=== PATIENT | female | born 1995 | race Caucasian/White ===

== ENCOUNTER 2016-04-30 22:06 | Emergency (ER) | payer BC ==
[~2016-04-30] VITALS: Ht 160 cm; Wt 73.3 kg
[~2016-04-30 22:06] MED LIST: ABILIFY5 MG PO; ALBUTEROL SULF8.5 GM IH; BUPROPION 200 MG; CALCIUM + D 601 EACH PO; CALCIUM 500 +1 EAC1 PO; ELIMITE 5% CREA60 GM TP; FAMOTIDINE20 MG PO; FLEXERIL10 MG PO; FLORINEF ACETA0.1 MG PO; FLUOXETINE HCL20 M1 PO; FLUOXETINE HCL20 MG PO; FLUOXETINE HCL40 MG PO; MEDROL DOSEPAK4 MG PO; NAPROSYN500 MG PO; PROZAC20 MG PO; TESSALON PERLE100 MG PO; VYVANSE20 MG PO; WELLBUTRIN PO; WELLBUTRIN SR150 MG PO; WELLBUTRIN SR200 MG PO; ZANTAC150 MG PO; ZITHROMAX Z-PA250 MG PO; ZOFRAN4 MG PO; ZOLOFT100 M1 PO; [UNRECOGNIZED DRUG - OTHER] PO; [UNRECOGNIZED DRUG - OTHER] PO
[2016-04-30] MEDS ORDERED: PERCOCET 5/31 TABLET PO (23:11)
[2016-04-30] MEDS ORDERED: PEN-VEE K,VEET500 MG PO (23:11)
[2016-04-30 23:24] VITALS: BP 134/80
== END 2016-04-30 23:25 | disposition home or self-care (01) ==
LOC: EME 22:06 → EXP 22:06
DX: K04.7 Periapical abscess without sinus (principal)
CPT/HCPCS: 99281; 99283

== ENCOUNTER 2016-11-07 10:29 | Emergency (ER) | payer BC ==
[~2016-11-07] VITALS: Ht 160 cm; Wt 62.6 kg
[~2016-11-07 10:29] MED LIST changes: +PEN-VEE K,VEET500 MG PO; +PERCOCET 5/31 TABLET PO
[2016-11-07] MEDS ORDERED: ZANTAC150 MG PO (11:50)
[2016-11-07] MEDS ORDERED: BUSPAR10 MG PO (11:50)
[2016-11-07] MEDS ORDERED: FIORICET 50-301 EACH PO (12:07)
[2016-11-07 12:57] VITALS: BP 129/86
== END 2016-11-07 12:57 | disposition home or self-care (01) ==
LOC: EME 10:29
DX: G43.909 Migraine, unspecified, not intractable, without status migrainosus (principal); M43.6 Torticollis; F17.200 Nicotine dependence, unspecified, uncomplicated
CPT/HCPCS: 99281; 99284; J1885

== ENCOUNTER 2016-11-16 10:44 | Emergency (ER) | payer BC ==
[~2016-11-16] VITALS: Ht 160 cm; Wt 69.1 kg
[~2016-11-16 10:44] MED LIST changes: +BUSPAR10 MG PO; +FIORICET 50-301 EACH PO
[2016-11-16 11:09] LABS: HEMATOCRIT 42.7 % (36.0-46.0); MCH 29.2 PG (29.0-34.0); MCHC 33.5 G/DL (30.0-36.0); MCV 87.1 FL (83-99); MEAN PLAT.VOLUME 10.4 uM^3 (9.5-12.4); PLATELET COUNT 272 K/uL (156-360); RBC DIS.WIDTH-CV 12.5 % (11.8-14.6); RBC DIS.WIDTH-SD 39.9 % (39-53); WHITE BLOOD COUNT 8.6 K/uL (4.1-10.2)
[2016-11-16 11:20] LABS: CHLORIDE 105 mEq/L (99-109); POTASSIUM 3.7 mEq/L (3.7-5.4); SODIUM 143 mEq/L (136-147)
[2016-11-16 11:21] LABS: GLUCOSE 128 mg/dL (70-99)
[2016-11-16 11:23] LABS: ANION GAP 16 MEQ/L (2-14)
[2016-11-16 11:25] LABS: GFR ESTIMATE (CALCULATED) > 59 mL/min/
[2016-11-16 11:26] LABS: UREA NITROGEN (BUN) 5 mg/dL (9-23)
[2016-11-16 13:43] LABS: INFLUENZA A VIRAL ANTIGEN NEGATIVE; INFLUENZA B VIRAL ANTIGEN NEGATIVE
[2016-11-16] MEDS ORDERED: VENTOLIN HFA18 GM IH (13:54)
[2016-11-16] MEDS ORDERED: MOTRIN600 MG PO (13:54)
[2016-11-16 14:14] VITALS: BP 138/93
== END 2016-11-16 14:15 | disposition home or self-care (01) ==
LOC: EME 10:44
PROVIDERS: Nurse Practitioner Family
DX: J20.9 Acute bronchitis, unspecified (principal); R51 Headache; M54.2 Cervicalgia; R11.2 Nausea with vomiting, unspecified; F17.200 Nicotine dependence, unspecified, uncomplicated
CPT/HCPCS: 71020; 80048; 85027; 87502; 94640; 99281; 99284

== ENCOUNTER 2017-03-27 16:05 | Emergency (ER) | payer BC ==
[~2017-03-27] VITALS: Ht 160 cm; Wt 79.8 kg
[~2017-03-27 16:05] MED LIST changes: +MOTRIN600 MG PO; +VENTOLIN HFA18 GM IH
[2017-03-27 18:22] LABS: HEMATOCRIT 41.5 % (36.0-46.0); HEMOGLOBIN 14.2 G/DL (11.9-15.5); MCH 29.3 PG (29.0-34.0); MCHC 34.2 G/DL (30.0-36.0); MCV 85.7 FL (83-99); PLATELET COUNT 252 K/uL (156-360); RBC DIS.WIDTH-CV 12.3 % (11.8-14.6); RBC DIS.WIDTH-SD 38.4 % (39-53); RED BLOOD COUNT 4.84 M/uL (3.80-5.20); WHITE BLOOD COUNT 10.1 K/uL (4.1-10.2)
[2017-03-27 18:31] LABS: ALBUMIN 4.3 g/dL (3.2-4.8); CHLORIDE 107 mEq/L (99-109)
[2017-03-27 18:32] LABS: POTASSIUM 3.7 mEq/L (3.7-5.4); SODIUM 140 mEq/L (136-147)
[2017-03-27 18:34] LABS: GLUCOSE 71 mg/dL (70-99)
[2017-03-27 18:36] LABS: TOTAL BILIRUBIN 0.5 mg/dL (0.0-1.0)
[2017-03-27 18:37] LABS: ALKALINE PHOSPHATASE 71 IU/L (3-129)
[2017-03-27 18:38] LABS: CREATININE 0.7 mg/dL (0.6-1.3); GFR ESTIMATE (CALCULATED) > 59 mL/min/
[2017-03-27 18:39] LABS: AST (GOT) 16 IU/L (2-34); UREA NITROGEN (BUN) 9 mg/dL (9-23)
[2017-03-27 18:40] LABS: ALT (GPT) 16 IU/L (3-49)
[2017-03-27 18:47] LABS: QUANTITATIVE HCG < 4.0 MIU/ML
[2017-03-27 19:39] VITALS: BP 122/69
== END 2017-03-27 19:40 | disposition home or self-care (01) ==
LOC: EME 16:05
PROVIDERS: Physician Assistant
DX: T39.8X5A Adverse effect of other nonopioid analgesics and antipyretics, not elsewhere classified, initial encounter (principal); I45.6 Pre-excitation syndrome; I49.8 Other specified cardiac arrhythmias; F17.200 Nicotine dependence, unspecified, uncomplicated; F32.9 Major depressive disorder, single episode, unspecified
CPT/HCPCS: 80053; 84702; 85027; 93005; 99281; 99284

== ENCOUNTER 2017-10-04 21:17 | Emergency (ER) | payer BC ==
[~2017-10-04] VITALS: Ht 160 cm; Wt 73.8 kg
[2017-10-04 23:03] VITALS: BP 123/96
[2017-10-05] MEDS ORDERED: NORCO 5/3251 TABLET PO (21:09)
[2017-10-05] MEDS ORDERED: CLEOCIN300 MG PO (21:09)
== END 2017-10-04 23:03 | disposition home or self-care (01) ==
LOC: EME 21:17
PROC: 3E0T3BZ Introduction of Anesthetic Agent into Peripheral Nerves and Plexi, Percutaneous Approach (ICD-10-PCS; principal; 2017-10-04)
DX: K02.9 Dental caries, unspecified (principal)
CPT/HCPCS: 99281; 99283; S0020

== ENCOUNTER 2017-10-05 20:34 | Emergency (ER) | payer BC ==
[~2017-10-05] VITALS: Ht 160 cm; Wt 72.3 kg
[2017-10-05] MEDS ORDERED: NORCO 5/3251 TABLET PO (21:09)
[2017-10-05] MEDS ORDERED: CLEOCIN300 MG PO (21:09)
[2017-10-05 21:25] VITALS: BP 131/99
== END 2017-10-05 21:25 | disposition home or self-care (01) ==
LOC: EME 20:34
DX: K02.9 Dental caries, unspecified (principal)
CPT/HCPCS: 99281; 99283